=== PATIENT | male | born 1960 | race Asian ===

== ENCOUNTER 2023-11-01 22:35 | Emergency (ER) | payer MEDICAID ==
[~2023-11-01] VITALS: Ht 167.6 cm; Wt 70.3 kg
[2023-11-01 23:00] VITALS: BP 138/102; PULSE 102; RESP 18; TEMP 97; O2SAT 98
[2023-11-02] MEDS ORDERED: IBUP-2218 PO (02:42)
[2023-11-02] MEDS ORDERED: CLIN150C1 PO (03:14)
[2023-11-02 03:18] VITALS: BP 138/102; PULSE 102; RESP 18; TEMP 97; O2SAT 98
== END 2023-11-02 03:16 | disposition home or self-care (01) ==
LOC: MED 22:35
DX: K04.7 Periapical abscess without sinus (principal); K08.409 Partial loss of teeth, unspecified cause, unspecified class; Z79.899 Other long term (current) drug therapy
CPT/HCPCS: 99283

== ENCOUNTER 2024-02-03 09:24 | Emergency (ER) | payer MEDICAID ==
[~2024-02-03] VITALS: Ht 167.6 cm; Wt 72.6 kg
[~2024-02-03 09:24] MED LIST: CLIN150C1 PO; IBUP-2218 PO
[2024-02-03 09:40] VITALS: BP 189/119; PULSE 88; RESP 15; TEMP 98.7; O2SAT 94
[2024-02-03] MEDS ORDERED: LIDOCAINE MPF 1% 10 MG/ML VIAL INJ ONE (10:00)
[2024-02-03 11:39] VITALS: O2SAT 94
== END 2024-02-03 11:35 | disposition home or self-care (01) ==
LOC: MED 09:24
DX: S83.92XA Sprain of unspecified site of left knee, initial encounter (principal); S73.101A Unspecified sprain of right hip, initial encounter; S60.222A Contusion of left hand, initial encounter; I10 Essential (primary) hypertension; E11.9 Type 2 diabetes mellitus without complications; G89.29 Other chronic pain; M54.9 Dorsalgia, unspecified; Z79.1 Long term (current) use of non-steroidal anti-inflammatories (NSAID); Z79.2 Long term (current) use of antibiotics; Z88.0 Allergy status to penicillin; W01.0XXA Fall on same level from slipping, tripping and stumbling without subsequent striking against object, initial encounter; Y93.89 Activity, other specified; Y92.89 Other specified places as the place of occurrence of the external cause; Y99.8 Other external cause status
CPT/HCPCS: 73130; 73562; 99284